=== PATIENT | female | born 2000 | race Caucasian/White ===

== ENCOUNTER → 2021-02-21 | Day surgery (SDC) | payer OTHER ==
[~2021-02-21] VITALS: Ht 170.2 cm; Wt 59.9 kg
[~2021-02-21] MED LIST: KURVELO PO; STOOL SOFTENER100 M1 PO
[2021-02-21 10:26] LABS: HCT 44.8 % (37.0-47.0); HGB 14.9 g/dl (12.5-16.0); MCH 28.8 pg (25.0-31.0); MCHC 33.3 g/dL (32.0-36.0); MCV 86.7 fL (78.0-100.0); MPV 10.3 fL (6.0-9.5); RBC 5.17 M/uL (4.20-5.40); RDW 12.1 % (11.5-14.0); WBC 6.8 K/uL (4.0-10.5)
[2021-02-21 10:34] LABS: HCG (URINE) SCREEN NEGATIVE (NEGATIVE)
[2021-02-21 11:10] LABS: ALBUMIN 3.8 g/dL (3.4-5.0); BILIRUBIN - TOTAL 0.4 mg/dL (0.2-1.0); BUN/CREAT RATIO (CALC) 12.4 RATIO; CREATININE 0.89 mg/dL (0.51-0.95); GLOBULIN (CALCULATION) 4.2 g/dL; POTASSIUM 4.6 mmol/L (3.5-5.1)
== END | disposition home or self-care (01) ==
LOC: FAS 09:37
PROVIDERS: Surgery
DX: K92.1 Melena (principal); Z79.2 Long term (current) use of antibiotics; Z79.899 Other long term (current) drug therapy
CPT/HCPCS: 36415; 80053; 84703; J7120